=== PATIENT | female | born 1955 | race Caucasian/White ===

== ENCOUNTER 2021-07-25 07:47 | Emergency (ER) | payer MEDICARE, BC ==
[~2021-07-25] VITALS: Ht 165.1 cm; Wt 65.8 kg
[2021-07-25] MEDS ORDERED: PROPRANOLOL HCL10 MG PO (08:06)
[2021-07-25] MEDS ORDERED: LIPITOR40 MG PO (08:06)
[2021-07-25] MEDS ORDERED: CYMBALTA20 MG PO (08:06)
[2021-07-25] MEDS ORDERED: HUMIRA10 MG/0.1 INJ (08:07)
[2021-07-25] MEDS ORDERED: ONDANSETRON ODT8 MG PO (13:01)
[2021-07-25] MEDS ORDERED: PROMETHAZINE HC25 M1 PO (13:01)
== END 2021-07-25 13:40 | disposition home or self-care (01) ==
LOC: ED 07:47
DX: K52.9 Noninfective gastroenteritis and colitis, unspecified (principal); K50.90 Crohn's disease, unspecified, without complications; Z88.5 Allergy status to narcotic agent; Z79.899 Other long term (current) drug therapy
CPT/HCPCS: 36415; 80053; 85025; 96361; 96365; 96366; 96375; 99284-25; J2405; J2550; J3480; J7030; J7060